=== PATIENT | female | born 1960 | race Caucasian/White ===

== ENCOUNTER → 2016-10-08 | Outpatient (CLI) | payer BC | END | disposition home or self-care (01) | LOC: GMAB 10:38 | PROVIDERS: ATTEND Family Medicine | DX: D50.9 Iron deficiency anemia, unspecified (principal); E53.8 Deficiency of other specified B group vitamins; Z00.00 Encounter for general adult medical examination without abnormal findings ==

== ENCOUNTER → 2017-04-12 | Outpatient (CLI) | payer BC | LOC: GMAB 11:42 | PROVIDERS: ATTEND Family Medicine | DX: D50.8 Other iron deficiency anemias (principal); D64.9 Anemia, unspecified ==

== ENCOUNTER → 2017-06-28 | Outpatient (CLI) | payer BC | LOC: GMAB 11:41 | PROVIDERS: ATTEND Family Medicine | DX: M25.561 Pain in right knee (principal) ==

== ENCOUNTER → 2017-06-28 | Outpatient (CLI) | payer BC ==
--- NOTE | 2017-06-28 13:12 | US ---
EXAM DESCRIPTION: Venous,Lower Extremity RT CLINICAL HISTORY: 57 years, Female, PAIN IN RIGHT KNEE COMPARISON: None TECHNIQUE: Duplex venous ultrasound of the right lower extremity was performed. FINDINGS: The right lower extremity veins are fully compressible and demonstrate physiologic responses to augmentation maneuvers. Color Doppler images show no intraluminal filling defect. IMPRESSION: Negative exam. No evidence of DVT in the right lower extremity. Electronically signed by: Ananda Browne MD 06/28/2017 1:11 PM CDT
== END ==
LOC: RAD 11:47
PROVIDERS: ATTEND Family Medicine
DX: M25.561 Pain in right knee (principal)

== ENCOUNTER → 2017-06-29 | Outpatient (CLI) | payer BC ==
--- NOTE | 2017-06-29 12:38 | MRI ---
EXAM DESCRIPTION: MRI right knee CLINICAL HISTORY: Right knee pain and swelling. Assess for medial meniscal tear. COMPARISON: None. TECHNIQUE: Multiplanar, multisequence MR images of the right knee FINDINGS: Intrameniscal signal posterior horn medial meniscus abutting the inferior articular surface with mild fraying. Medial meniscus otherwise intact. Medial femorotibial chondrosis with high-grade chondral loss over the weightbearing femoral condyle mid to anterior. Joint line osteophyte. Full-thickness chondral loss anteriorly without subchondral marrow edema. Full-thickness loss over about 1.4 cm area. Tibial cartilage is mildly thin No lateral meniscal tear. Lateral femorotibial chondral signal heterogeneity and mild surface irregularity, grade 2 Grade 4 patellofemoral chondrosis over the majority of the lateral joint with multifocal mild subchondral edema and bony remodeling. Chondral thinning and surface irregularity over the apex and medial trochlea. Joint line osteophytes ACL, PCL, MCL and fibular collateral ligaments are intact Biceps femoris, popliteus and iliotibial band tendons are normal Patellar and quadriceps tendons and tendons of the posterior medial knee are intact Moderate joint effusion. Loculated fluid behind the medial femoral metaphysis superior to the capsular/gastrocnemius tendon origin attachment. Cluster of loose bodies behind the posterior horn medial meniscus ranging in size from 3 to 6 mm. 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
== END ==
LOC: RAD 10:14
PROVIDERS: ATTEND Orthopaedic Surgery
DX: S83.241A Other tear of medial meniscus, current injury, right knee, initial encounter (principal)

== ENCOUNTER → 2017-10-26 | Outpatient (CLI) | payer BC | LOC: GMAE 11:41 | PROVIDERS: ATTEND Family Medicine | DX: I10 Essential (primary) hypertension (principal) ==

== ENCOUNTER → 2018-03-17 | Outpatient (CLI) | payer BC | LOC: GMAE 11:26 | PROVIDERS: ATTEND Family Medicine | DX: Z00.00 Encounter for general adult medical examination without abnormal findings (principal) ==